=== PATIENT | male | born 1990 | race Caucasian/White ===

== ENCOUNTER 2017-07-28 15:19 | Emergency (ER) | payer OTHER ==
[~2017-07-28] VITALS: Ht 175.3 cm; Wt 66.0 kg
[2017-07-28] MEDS ORDERED: LAMOTRIGINE 25 MG TABLET PO ONE (18:30)
[2017-07-28] MEDS ORDERED: ZONISAMIDE 50 MG CAPSULE PO ONE (18:30)
[2017-07-28 19:02] VITALS: BP 109/55
== END 2017-07-28 19:06 | disposition home or self-care (01) ==
LOC: ED 18:38
DX: G40.909 Epilepsy, unspecified, not intractable, without status epilepticus (principal); F12.10 Cannabis abuse, uncomplicated; F10.10 Alcohol abuse, uncomplicated
CPT/HCPCS: 99291

== ENCOUNTER 2017-10-19 08:45 | Inpatient (IN) | payer OTHER ==
[~2017-10-19] VITALS: Ht 175.3 cm; Wt 68.4 kg
[2017-10-19] MEDS: PROPOFOL 100 ML IV PRN ×4 (08:55→20:42)
[2017-10-19 09:14] LABS: MEAN CORPUSCULAR HEMOGLOBIN 30.4 pg (27.5-34.5); MEAN CORPUSCULAR HGB CONC 33.6 g/dL (33.2-36.2); MEAN CORPUSCULAR VOLUME 90.5 fL (81-97); MEAN PLATELET VOLUME 7.4 fL (7.4-10.4); PLATELET COUNT 272 x10^3/uL (130-400); RED BLOOD COUNT 5.14 x10^6/uL (4.38-5.82); RED CELL DISTRIBUTION WIDTH 13.6 % (9.4-14.8)
[2017-10-19 09:25] LABS: ALBUMIN 4.5 g/dL (3.4-5.0); ANION GAP 7 mmol/L (5-15); CALCIUM 8.6 mg/dL (8.5-10.1); CHLORIDE 110 mmol/L (98-107); CREATININE 1.15 mg/dL (0.7-1.3)
[2017-10-19] MEDS ORDERED: FILTER 0.22 MICRON FOR PHENYTOIN IV PRN (09:30)
[2017-10-19] MEDS ORDERED: SODIUM CHLORIDE 0.9% IV ONE (09:30)
[2017-10-19] MEDS ORDERED: PHENYTOIN SODIUM IV ONE (09:30)
[2017-10-19] MEDS ORDERED: FOSPHENYTOIN IV ONE (09:30)
[2017-10-19 09:34] LABS: BASOPHILS # (AUTO) 0.08 x10^3/uL (0-0.1); BASOPHILS % (AUTO) 0 % (0-1); EOSINOPHILS # (AUTO) 0.01 x10^3/uL (0-0.4); EOSINOPHILS % (AUTO) 0 % (1-7); LYMPHOCYTES # (AUTO) 1.59 x10^3/uL (1-3.4); LYMPHOCYTES % (AUTO) 8 % (22-44); MD SCAN; MONOCYTES # (AUTO) 0.77 x10^3/uL (0.2-0.8); MONOCYTES % (AUTO) 4 % (2-9); NEUTROPHILS # (AUTO) 18.82 x10^3/uL (1.8-6.8); NEUTROPHILS % (AUTO) 88 % (42-75)
[2017-10-19] MEDS ORDERED: LORazepam 2 MG/ML, 1ML ONE (10:14)
[2017-10-19] MEDS ORDERED: LORazepam 2 MG/ML, 1ML IVPush ONE (10:20)
[2017-10-19] MEDS ORDERED: ACETAMINOPHEN 325 MG TABLET PO PRN (11:00)
[2017-10-19] MEDS ORDERED: LABETALOL 5MG/ML, 20ML IVPush PRN (11:00)
[2017-10-19] MEDS ORDERED: LORazepam 2 MG/ML, 1ML IVPush PRN ×3 (11:00→18:30)
[2017-10-19] MEDS ORDERED: POLYETHYLENE GLYCOL 17 GM PACKET PO PRN (11:00)
[2017-10-19] MEDS: AMPICILLIN/SULBACTAM 3 GM in SODIUM CHLORIDE 0.9% 100 ML IV SCH ×3 (11:07→22:55)
[2017-10-19] MEDS: SODIUM CHLORIDE 0.9% 1,000 ML IV SCH ×2 (11:07→20:01)
[2017-10-19 11:32] LABS: THYROID STIMULATING HORMONE 1.66 mIU/L (0.358-3.740)
[2017-10-19] MEDS: ENOXAPARIN 40 MG/0.4 ML SQ SCH (12:18)
[2017-10-19] MEDS ORDERED: PROPOFOL 100 ML IV PRN (16:10)
[2017-10-19] MEDS ORDERED: ENOXAPARIN 40 MG/0.4 ML SQ SCH (16:30)
[2017-10-19] MEDS ORDERED: FENTANYL PF 100 MCG/2ML IVPush PRN (16:30)
[2017-10-19] MEDS ORDERED: LACTULOSE 20 GM/30 ML UDC NG PRN (16:30)
[2017-10-19] MEDS ORDERED: SENNOSIDES 8.8 MG/5 ML ORAL SOL NG PRN (16:30)
[2017-10-19] MEDS ORDERED: BISACODYL 10 MG SUPP PR PRN (16:30)
[2017-10-19] MEDS ORDERED: LIDOCAINE-MPF 1%, 2ML ENDO PRN (16:30)
[2017-10-19] MEDS ORDERED: SENNA/DOCUSATE TABLET NG PRN (16:30)
[2017-10-19] MEDS ORDERED: PHARMACY MAY ADJ FOR RENAL FX MC SCH (16:30)
[2017-10-19] MEDS: ALBUTEROL/IPRATROPIUM 2.5MG/0.5MG, 3 ML INLINE SCH ×3 (16:30→23:32)
[2017-10-19] MEDS: FAMOTIDINE 20 MG/2 ML IV SCH (17:45)
[2017-10-19 18:20] LABS: MICROSCOPIC AUTO
[2017-10-19 18:22] LABS: CULTURE INDICATED? NO
[2017-10-19] MEDS ORDERED: FAMOTIDINE 20 MG/2 ML IVPush SCH (21:00)
[2017-10-19] MEDS: PHENYTOIN SODIUM 50 MG/ML, 2ML IVPush SCH (21:03)
[2017-10-19] MEDS: morphine SULFATE 10 MG/ML, 1ML IVPush PRN (22:40)
[2017-10-20] MEDS: PROPOFOL 100 ML IV PRN (00:41)
[2017-10-20] MEDS: ALBUTEROL/IPRATROPIUM 2.5MG/0.5MG, 3 ML INLINE SCH ×5 (03:15→18:00)
[2017-10-20 04:00] VITALS: BP 135/50
[2017-10-20] MEDS: FAMOTIDINE 20 MG/2 ML IV SCH ×2 (04:11→16:53)
[2017-10-20] MEDS: SODIUM CHLORIDE 0.9% 1,000 ML IV SCH ×3 (04:11→23:31)
[2017-10-20] MEDS: AMPICILLIN/SULBACTAM 3 GM in SODIUM CHLORIDE 0.9% 100 ML IV SCH ×4 (04:31→23:32)
[2017-10-20 05:01] LABS: BASOPHILS # (AUTO) 0.02 x10^3/uL (0-0.1); BASOPHILS % (AUTO) 0 % (0-1); EOSINOPHILS % (AUTO) 0 % (1-7); LYMPHOCYTES # (AUTO) 1.01 x10^3/uL (1-3.4); LYMPHOCYTES % (AUTO) 8 % (22-44); MD NO; MEAN CORPUSCULAR HEMOGLOBIN 30.4 pg (27.5-34.5); MEAN CORPUSCULAR HGB CONC 33.5 g/dL (33.2-36.2); MEAN CORPUSCULAR VOLUME 90.8 fL (81-97); MEAN PLATELET VOLUME 7.4 fL (7.4-10.4); MONOCYTES # (AUTO) 1.24 x10^3/uL (0.2-0.8); MONOCYTES % (AUTO) 10 % (2-9); NEUTROPHILS # (AUTO) 9.68 x10^3/uL (1.8-6.8); NEUTROPHILS % (AUTO) 81 % (42-75); PLATELET COUNT 211 x10^3/uL (130-400); RED BLOOD COUNT 4.55 x10^6/uL (4.38-5.82); RED CELL DISTRIBUTION WIDTH 13.6 % (9.4-14.8)
[2017-10-20 05:04] LABS: CHLORIDE 111 mmol/L (98-107)
[2017-10-20 05:11] LABS: ALANINE AMINOTRANSFERASE 29 U/L (12-78); ALBUMIN 3.5 g/dL (3.4-5.0); ALKALINE PHOSPHATASE 73 U/L (45-117); ANION GAP 11 mmol/L (5-15); BILIRUBIN,TOTAL 0.7 mg/dL (0.2-1.0); CALCIUM 8.1 mg/dL (8.5-10.1); CREATININE 3.58 mg/dL (0.7-1.3); TOTAL PROTEIN 6.3 g/dL (6.4-8.2)
[2017-10-20] MEDS: morphine SULFATE 10 MG/ML, 1ML IVPush PRN (07:12)
[2017-10-20] MEDS: LAMOTRIGINE 100 MG TABLET PO SCH (08:26)
[2017-10-20] MEDS: SENNA/DOCUSATE TABLET PO SCH (08:26)
[2017-10-20] MEDS: PHENYTOIN SODIUM 50 MG/ML, 2ML IVPush SCH ×3 (08:26→21:16)
[2017-10-20] MEDS: ENOXAPARIN 40 MG/0.4 ML SQ SCH (12:17)
[2017-10-20] MEDS: PROMETHAZINE 25 MG/ML, 1ML IM PRN ×2 (14:06→22:44)
[2017-10-21 04:00] VITALS: BP 126/76
[2017-10-21] MEDS: FAMOTIDINE 20 MG/2 ML IV SCH (04:27)
[2017-10-21 04:33] LABS: BASOPHILS # (AUTO) 0.07 x10^3/uL (0-0.1); BASOPHILS % (AUTO) 1 % (0-1); EOSINOPHILS # (AUTO) 0.01 x10^3/uL (0-0.4); EOSINOPHILS % (AUTO) 0 % (1-7); LYMPHOCYTES # (AUTO) 1.32 x10^3/uL (1-3.4); LYMPHOCYTES % (AUTO) 13 % (22-44); MD NO; MEAN CORPUSCULAR HEMOGLOBIN 30.3 pg (27.5-34.5); MEAN CORPUSCULAR HGB CONC 33.4 g/dL (33.2-36.2); MEAN CORPUSCULAR VOLUME 90.8 fL (81-97); MEAN PLATELET VOLUME 7.7 fL (7.4-10.4); MONOCYTES # (AUTO) 0.93 x10^3/uL (0.2-0.8); MONOCYTES % (AUTO) 9 % (2-9); NEUTROPHILS # (AUTO) 7.57 x10^3/uL (1.8-6.8); NEUTROPHILS % (AUTO) 77 % (42-75); PLATELET COUNT 177 x10^3/uL (130-400); RED CELL DISTRIBUTION WIDTH 13.5 % (9.4-14.8)
[2017-10-21 04:39] LABS: ALANINE AMINOTRANSFERASE 22 U/L (12-78); ALBUMIN 3.1 g/dL (3.4-5.0); ANION GAP 11 mmol/L (5-15); CHLORIDE 113 mmol/L (98-107); CREATININE 4.32 mg/dL (0.7-1.3)
[2017-10-21 04:41] LABS: ALKALINE PHOSPHATASE 60 U/L (45-117); BILIRUBIN,TOTAL 0.6 mg/dL (0.2-1.0)
[2017-10-21] MEDS: AMPICILLIN/SULBACTAM 3 GM in SODIUM CHLORIDE 0.9% 100 ML IV SCH ×2 (05:50→20:39)
[2017-10-21] MEDS: PROMETHAZINE 25 MG/ML, 1ML IM PRN ×3 (07:45→20:45)
[2017-10-21] MEDS: PHENYTOIN SODIUM 50 MG/ML, 2ML IVPush SCH (09:00)
[2017-10-21] MEDS: PHENYTOIN 100 MG CAPSULE PO SCH ×2 (09:20→20:39)
[2017-10-21] MEDS: ENOXAPARIN 30 MG/0.3 ML SQ SCH (09:20)
[2017-10-21] MEDS: LAMOTRIGINE 100 MG TABLET PO SCH (09:21)
[2017-10-21] MEDS: SENNA/DOCUSATE TABLET PO SCH (09:21)
[2017-10-21] MEDS: SODIUM CHLORIDE 0.9% 1,000 ML IV SCH (09:21)
[2017-10-21] MEDS ORDERED: SERTRALINE 50MG TABLET PO SCH (09:30)
[2017-10-21] MEDS: SERTRALINE 50MG TABLET PO SCH (11:04)
[2017-10-21] MEDS: PANTOPRAZOLE 40 MG IV IVPush SCH (14:03)
[2017-10-21] MEDS: SODIUM BICARB 8.4%,50ML SYR. 75 MEQ in SODIUM CHLORIDE 0.45% 1,000 ML IV SCH ×2 (14:03→23:13)
[2017-10-21 14:13] VITALS: BP 129/63
[2017-10-21 15:50] LABS: CHLORIDE,URINE RANDOM 41 mmol/L; POTASSIUM,URINE RANDOM 23 mmol/L; SODIUM,URINE RANDOM 40 mmol/L
[2017-10-21 16:01] LABS: AMPHETAMINE SCREEN, URINE Negative (Negative); BARBITURATE SCREEN, URINE Negative (Negative); BENZODIAZEPINE SCREEN, URINE Positive (Negative); CANNABINOID SCREEN, URINE Positive (Negative); COCAINE SCREEN, URINE Negative (Negative); METHADONE SCREEN, URINE Negative (Negative); OPIATE SCREEN, URINE Positive (Negative); TOTAL PROTEIN,URINE RANDOM 46 mg/dL (0-12)
[2017-10-21 16:29] LABS: MICROSCOPIC INDICATED
[2017-10-21 16:53] LABS: CULTURE INDICATED? YES
[2017-10-21 19:33] VITALS: BP 131/83
[2017-10-22] MEDS: PROMETHAZINE 25 MG/ML, 1ML IM PRN ×6 (01:04→21:15)
[2017-10-22 03:32] VITALS: BP 129/85
[2017-10-22 05:57] LABS: BASOPHILS # (AUTO) 0.04 x10^3/uL (0-0.1); BASOPHILS % (AUTO) 0 % (0-1); EOSINOPHILS # (AUTO) 0.04 x10^3/uL (0-0.4); EOSINOPHILS % (AUTO) 0 % (1-7); LYMPHOCYTES # (AUTO) 1.41 x10^3/uL (1-3.4); LYMPHOCYTES % (AUTO) 14 % (22-44); MD NO; MEAN CORPUSCULAR HEMOGLOBIN 30.9 pg (27.5-34.5); MEAN CORPUSCULAR HGB CONC 33.9 g/dL (33.2-36.2); MEAN CORPUSCULAR VOLUME 91.1 fL (81-97); MEAN PLATELET VOLUME 7.6 fL (7.4-10.4); MONOCYTES # (AUTO) 1.03 x10^3/uL (0.2-0.8); MONOCYTES % (AUTO) 10 % (2-9); NEUTROPHILS # (AUTO) 7.78 x10^3/uL (1.8-6.8); NEUTROPHILS % (AUTO) 76 % (42-75); PLATELET COUNT 152 x10^3/uL (130-400); RED BLOOD COUNT 3.99 x10^6/uL (4.38-5.82); RED CELL DISTRIBUTION WIDTH 13.1 % (9.4-14.8)
[2017-10-22 06:09] LABS: ALBUMIN 2.9 g/dL (3.4-5.0); ANION GAP 10 mmol/L (5-15); CALCIUM 7.7 mg/dL (8.5-10.1); CHLORIDE 111 mmol/L (98-107)
[2017-10-22 06:17] LABS: % IRON SATURATION 43 % (20-55); ALANINE AMINOTRANSFERASE 35 U/L (12-78); ALKALINE PHOSPHATASE 53 U/L (45-117); BILIRUBIN,TOTAL 0.7 mg/dL (0.2-1.0); CREATININE 3.44 mg/dL (0.7-1.3); IRON LEVEL 97 mcg/dL (65-175); TOTAL IRON BINDING CAPACITY 227 mcg/dL (250-450); TOTAL PROTEIN 5.7 g/dL (6.4-8.2)
[2017-10-22] MEDS: PHENYTOIN 100 MG CAPSULE PO SCH ×2 (08:14→12:17)
[2017-10-22] MEDS: SODIUM BICARB 8.4%,50ML SYR. 75 MEQ in SODIUM CHLORIDE 0.45% 1,000 ML IV SCH (08:14)
[2017-10-22] MEDS: PANTOPRAZOLE 40 MG IV IVPush SCH (08:14)
[2017-10-22 08:16] VITALS: BP 126/81
[2017-10-22] MEDS: LAMOTRIGINE 100 MG TABLET PO SCH (08:16)
[2017-10-22] MEDS: SENNA/DOCUSATE TABLET PO SCH (08:17)
[2017-10-22] MEDS: SERTRALINE 50MG TABLET PO SCH (08:17)
[2017-10-22] MEDS: ENOXAPARIN 30 MG/0.3 ML SQ SCH (08:19)
[2017-10-22] MEDS ORDERED: SODIUM BICARB 8.4%,50ML SYR. 75 MEQ in SODIUM CHLORIDE 0.45% 1,000 ML IV SCH (12:00)
[2017-10-22] MEDS: AMPICILLIN/SULBACTAM 3 GM in SODIUM CHLORIDE 0.9% 100 ML IV SCH (12:16)
[2017-10-22 14:17] VITALS: BP 128/92
[2017-10-22 18:27] VITALS: BP 148/88
[2017-10-23] MEDS: AMPICILLIN/SULBACTAM 3 GM in SODIUM CHLORIDE 0.9% 100 ML IV SCH ×2 (00:05→12:13)
[2017-10-23] MEDS: PROMETHAZINE 25 MG/ML, 1ML IM PRN (02:40)
[2017-10-23 03:34] VITALS: BP 147/90
[2017-10-23 07:25] LABS: BASOPHILS # (AUTO) 0.08 x10^3/uL (0-0.1); BASOPHILS % (AUTO) 1 % (0-1); EOSINOPHILS # (AUTO) 0.08 x10^3/uL (0-0.4); EOSINOPHILS % (AUTO) 1 % (1-7); LYMPHOCYTES # (AUTO) 1.46 x10^3/uL (1-3.4); LYMPHOCYTES % (AUTO) 16 % (22-44); MD NO; MEAN CORPUSCULAR HEMOGLOBIN 29.9 pg (27.5-34.5); MEAN CORPUSCULAR HGB CONC 33.2 g/dL (33.2-36.2); MEAN CORPUSCULAR VOLUME 90.1 fL (81-97); MEAN PLATELET VOLUME 7.5 fL (7.4-10.4); MONOCYTES # (AUTO) 0.97 x10^3/uL (0.2-0.8); MONOCYTES % (AUTO) 10 % (2-9); NEUTROPHILS # (AUTO) 6.68 x10^3/uL (1.8-6.8); NEUTROPHILS % (AUTO) 72 % (42-75); PLATELET COUNT 173 x10^3/uL (130-400); RED BLOOD COUNT 4.28 x10^6/uL (4.38-5.82); RED CELL DISTRIBUTION WIDTH 13.2 % (9.4-14.8)
[2017-10-23 07:34] LABS: ALANINE AMINOTRANSFERASE 64 U/L (12-78); ALBUMIN 3.2 g/dL (3.4-5.0); ANION GAP 9 mmol/L (5-15); CALCIUM 8.5 mg/dL (8.5-10.1); CHLORIDE 110 mmol/L (98-107); CREATININE 2.59 mg/dL (0.7-1.3)
[2017-10-23 07:36] LABS: ALKALINE PHOSPHATASE 57 U/L (45-117); BILIRUBIN,TOTAL 0.5 mg/dL (0.2-1.0); TOTAL PROTEIN 6.5 g/dL (6.4-8.2)
[2017-10-23] MEDS ORDERED: SINCALIDE (KINEVAC) 5 MCG ONE (08:28)
[2017-10-23 08:32] VITALS: BP 137/87
[2017-10-23] MEDS: PHENYTOIN 100 MG CAPSULE PO SCH (09:00)
[2017-10-23] MEDS: SENNA/DOCUSATE TABLET PO SCH (09:00)
[2017-10-23] MEDS ORDERED: ENOXAPARIN 40 MG/0.4 ML SQ SCH (09:00)
[2017-10-23] MEDS: PANTOPRAZOLE 40 MG IV IVPush SCH (10:26)
[2017-10-23] MEDS: SERTRALINE 50MG TABLET PO SCH (10:26)
[2017-10-23] MEDS: LAMOTRIGINE 100 MG TABLET PO SCH (10:27)
[2017-10-23] MEDS ORDERED: SERT50TA5 PO (13:11)
[2017-10-23] MEDS ORDERED: LAMO100T PO (13:11)
[2017-10-23] MEDS ORDERED: AMOX1TAB64 PO (13:11)
[2017-10-23] MEDS ORDERED: AMPICILLIN/SULBACTAM 3 GM in SODIUM CHLORIDE 0.9% 100 ML IV SCH (20:00)
== END 2017-10-23 15:25 | disposition home or self-care (01) | DRG 208 ==
LOC: ED 09:02 → EDIP 09:03 → ED 09:47 → CCU 10:25 → 3NE 10-21 11:22
PROVIDERS: ADMIT Internal Medicine; ATTEND Internal Medicine
PROC: 5A1935Z Respiratory Ventilation, Less than 24 Consecutive Hours (ICD-10-PCS; principal; 2017-10-19)
PROC: 0BH17EZ Insertion of Endotracheal Airway into Trachea, Via Natural or Artificial Opening (ICD-10-PCS; 2017-10-19)
DX: J96.00 Acute respiratory failure, unspecified whether with hypoxia or hypercapnia (principal); N17.0 Acute kidney failure with tubular necrosis; J69.0 Pneumonitis due to inhalation of food and vomit; G93.40 Encephalopathy, unspecified; Z99.11 Dependence on respirator [ventilator] status; E46 Unspecified protein-calorie malnutrition; R13.10 Dysphagia, unspecified; G40.901 Epilepsy, unspecified, not intractable, with status epilepticus; D64.9 Anemia, unspecified; D72.819 Decreased white blood cell count, unspecified; Z68.22 Body mass index [BMI] 22.0-22.9, adult; F12.90 Cannabis use, unspecified, uncomplicated; F32.9 Major depressive disorder, single episode, unspecified; F41.0 Panic disorder [episodic paroxysmal anxiety]; Z81.8 Family history of other mental and behavioral disorders; Z82.0 Family history of epilepsy and other diseases of the nervous system; Z90.49 Acquired absence of other specified parts of digestive tract; Z88.8 Allergy status to other drugs, medicaments and biological substances
CPT/HCPCS: 36415; 36600; 70551; 71045; 76705; 76770; 78227; 80048; 80053; 80175; 80185; 80307; 81001; 82040; 82150; 82306; 82436; 82550; 82570; 82728; 82803; 83540; 83550; 83690; 83735; 83970; 84100; 84133; 84156; 84300; 84443; 84478; 84550; 85025; 87070; 87081; 87086; 87205; 93005; 94002; 94003; 94640; 95812; 99291; J0295; J1165; J1650; J2550; J2704; J3010; J3490; J7620; A9537; C9113; C9898; J2060; J2270; J2805; J7030; S0028